=== PATIENT | male | born 2000 | race Caucasian/White ===

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

== ENCOUNTER 2021-08-01 10:15 | Emergency (ER) | payer OTHER ==
[~2021-08-01 10:15] MED LIST: NAPROXEN500 MG PO
[2021-08-01 11:08] LABS: BASOPHIL 0.5 % (0-2); EOSINOPHIL 0.4 % (0-5); HCT 48.6 % (42.0-52.0); HGB 16.7 g/dl (13.2-18.0); LYMPHOCYTE 7.7 % (15-48); MCHC 34.4 g/dL (32.0-36.0); MCV 93.1 fL (78.0-100.0); MPV 10.1 fL (6.0-9.5); NEUTROPHIL 84.1 % (41-80); NRBC 0; PLT 244 K/uL (150-400); RBC 5.22 M/uL (4.70-6.00); RDW 12.2 % (11.5-14.0); WBC 7.4 K/uL (4.0-10.5)
[2021-08-01 11:09] LABS: BUN/CREAT RATIO (CALC) 15.3 RATIO; CREATININE 0.85 mg/dL (0.67-1.17); POTASSIUM 3.2 mmol/L (3.5-5.1)
== END 2021-08-01 11:45 | disposition home or self-care (01) ==
LOC: FER 10:15
PROVIDERS: Emergency Medicine
DX: F41.0 Panic disorder [episodic paroxysmal anxiety] (principal); F17.290 Nicotine dependence, other tobacco product, uncomplicated
CPT/HCPCS: 36415; 71046; 80048; 84484; 85025; 93005